=== PATIENT | female | born 1950 | race Caucasian/White ===

== ENCOUNTER → 2017-11-01 | Outpatient (CLI) | payer OTHER ==
[~2017-11-01] MED LIST: ALBU8.5H IH; ALPH100C PO; ASCO-188 PO; ASPI-1471 PO; BLOO1STR16 MC; CALC250T7 PO; CHOL10005 PO; CINN500C12 PO; CIPR-214 PO; CRAN400T5 PO; CYAN25005 SL; EPIN0.3P15 IM; ERGO500037 PO; HYDR-2966 PO; INSU100I8 SQ; INSU100V24 SQ; IPRN ENA; KRIL1CAP12 PO; LANC-1295 MC; LANI SUBQ; LEVO125T77 PO; LEVO150T72 PO; LISI-362 PO; LISI20TA29 PO; LOVA20TA99 PO; MAGN250T34 PO; METF-420 PO; MULT1TAB64 PO; PNEU0.5D3 IM; SOLI10TA8 PO; SOUR1000 PO; SULF-198 PO; SULF1TAB24 PO; SYRI-1525 MC; TAVA10SO2 TOP; TRAM-420 PO; TURM500C4 PO; UBID100C9 PO; VIT-7 PO; VITA150T2 PO; [UNRECOGNIZED DRUG - CODE] PO; [UNRECOGNIZED DRUG - CODE] PO
--- NOTE | 2017-11-01 16:22 | RADIOLOGY IMAGING REPORT ---
FACILITY: [facility] [place] PATIENT NAME: JUAN SKINNER : [id number] MR: [id number] V: [id number] EXAM DATE: ORDERING PHYSICIAN: SAHIL ADLER TECHNOLOGIST: Radha Mahoney PROCEDURE:BILATERAL DIGITAL SCREENING MAMMOGRAM WITH CAD ASSISTED INTERPRETATION & 3D TOMOSYNTHESIS COMPARISON:Prior mammograms 01/21/16, 02/04/14, 11/28/10. INDICATIONS:SCREENING FINDINGS: Moderately heterogeneous fibroglandular tissue is seen throughout the breasts. The parenchymal pattern has remained stable allowing for difference in mammographic technique & patient positioning. There is no evidence of malignant appearing mass, malignant appearing calcifications or other secondary sign of malignancy in either breast. DIAGNOSTIC CATEGORY 1--NEGATIVE. RECOMMENDATIONS: ROUTINE MAMMOGRAM AND CLINICAL EVALUATION. IMPRESSION: BIRADS 1: Negative No significant abnormality is seen. Dictated by: Suma Dixon M.D. on 11/01/2017 at 11:25 Transcribed by: [email or web address] on 11/01/2017 at 11:30 Approved by: Suma Dixon M.D. on 11/01/2017 at 16:21 [facility]
== END ==
LOC: MAMO 00:59
PROVIDERS: ATTEND Internal Medicine
DX: Z12.31 Encounter for screening mammogram for malignant neoplasm of breast (principal)
CPT/HCPCS: 77063; 77067

== ENCOUNTER → 2018-07-01 | Outpatient (CLI) | payer OTHER ==
[~2018-07-01] MED LIST changes: +CIPR-345 PO; +FLAS1EAC MC; +FLAS1KIT SUBQ; +LISI-374 PO; -METF-420 PO; +METF-452 PO
== END ==
LOC: LAB 08:23
PROVIDERS: ATTEND Internal Medicine
DX: R19.7 Diarrhea, unspecified (principal)
CPT/HCPCS: 82274; 83630; 87045; 87177; 87324; 87449

== ENCOUNTER → 2018-11-19 | Outpatient (CLI) | payer OTHER | LOC: LAB 16:05 | PROVIDERS: ATTEND Internal Medicine Endocrinology, Diabetes & Metabolism | DX: E11.65 Type 2 diabetes mellitus with hyperglycemia (principal) | CPT/HCPCS: 36415; 82040; 82247; 82310; 82374; 82435; 82565; 82947; 83036; 84075; 84132; 84155; 84295; 84443; 84450; 84460; 84520 ==

== ENCOUNTER → 2018-11-28 | Outpatient (CLI) | payer OTHER ==
--- NOTE | 2018-11-28 19:23 | RADIOLOGY IMAGING REPORT ---
[place] [facility] [place] NAME: Aida Mccormack : 1950 MR: [id number] V: [id number] EXAM DATE: ORDERING PHYSICIAN: VIC MAHONEY TECHNOLOGIST: Location: [facility] Patient: Aida Mccormack : 1950 Visit/Account:[id number] Date of Sevice: 11/28/2018 PELVIS MIN 3 VIEWS History: Pelvic pain. Comparison study: Pelvic x-ray April 03, 2014. Findings: There is diffuse osteopenia but no findings of fracture in the pelvis. There are findings of superolateral joint space narrowing involving hips bilaterally suggesting osteo arthrosis. There are minimal degenerative findings in the sacroiliac joints. There are calcified fibroids in the pelvis. The fibroid on the right side measures 3.6 cm in size and the fibroid on the left side measures 4.2 x 2.8 cm in size and has continued calcified when compared to the prior exam. IMPRESSION: 1. Osteopenia without fracture. 2. Osteoarthrosis of the hips bilaterally. 3. Again noted are 2 calcified fibroids in the pelvis. Report Dictated By: Suraj Soria MD at 11/28/2018 7:18 PM Report E-Signed By: Suraj Soria MD at 11/28/2018 7:20 PM WSN:[id number]
== END ==
LOC: RAD 17:34
PROVIDERS: ATTEND Nurse Practitioner Primary Care
DX: M85.88 Other specified disorders of bone density and structure, other site (principal); M16.0 Bilateral primary osteoarthritis of hip
CPT/HCPCS: 72190

== ENCOUNTER → 2018-12-11 | Outpatient (CLI) | payer OTHER ==
--- NOTE | 2018-12-11 09:52 | RADIOLOGY IMAGING REPORT ---
FACILITY: [facility] [place] PATIENT NAME: Aida Mccormack : 1950 MR: [id number] V: [id number] EXAM DATE: ORDERING PHYSICIAN: VIC MAHONEY TECHNOLOGIST: Location: [facility] Patient: Aida Mccormack : 1950 Visit/Account:[id number] Date of Sevice: 12/11/2018 PELVIC HISTORY: Left-sided pelvic pain times several months TECHNIQUE: Transvaginal and transabdominal ultrasound pelvis. COMPARISON: May 23, 2012 FINDINGS: Uterus: ; 7.7 cm length x 3.1 cm AP x 4.7 cm transverse. Myometrium: There are numerous calcified fibroids seen within the fundus the largest measuring approx imately 3.4 cm. Endometrium: Not well seen due to extensive shadowing from the uterine fibroids; double thickness mm. Cervix: Grossly negative. Ovaries: Right - 1.7 x 1.3 x 2.5 cm Left - not seen Blood flow is documented in right ovary by duplex Doppler ultrasound. Adnexa: Grossly unremarkable. Free pelvic fluid: None. IMPRESSION: Multiple calcified uterine fibroids. Largest measures approximately 3.4 cm Endometrium not well seen due to shadowing from the uterine fibroids Left ovary not visualized Report Dictated By: Suma Dixon MD at 12/11/2018 9:21 AM Report E-Signed By: Suma Dixon MD at 12/11/2018 9:49 AM WSN:[id number]
== END ==
LOC: US 00:34
PROVIDERS: ATTEND Nurse Practitioner Primary Care
DX: D25.9 Leiomyoma of uterus, unspecified (principal)
CPT/HCPCS: 76856

== ENCOUNTER → 2019-01-14 | Outpatient (CLI) | payer OTHER ==
[2019-01-14 18:05] LABS: PLATELET COUNT, AUTOMATED 296 K/uL (150-450)
== END ==
LOC: LAB 17:25
PROVIDERS: ATTEND Nurse Practitioner Family
DX: R19.7 Diarrhea, unspecified (principal)
CPT/HCPCS: 36415; 85025

== ENCOUNTER → 2019-02-21 | Outpatient (CLI) | payer OTHER | LOC: RESP 00:52 | PROVIDERS: ATTEND Nurse Practitioner Family | DX: G47.33 Obstructive sleep apnea (adult) (pediatric) (principal) ==

== ENCOUNTER → 2019-03-05 | Outpatient (CLI) | payer OTHER | LOC: LAB 09:03 | PROVIDERS: ATTEND Nurse Practitioner Family | DX: R19.7 Diarrhea, unspecified (principal) | CPT/HCPCS: 83630; 87045; 87324; 87449 ==